=== PATIENT | male | born 1985 | race Two or more races ===

== ENCOUNTER 2020-09-03 14:34 | Outpatient (CLI) | payer OTHER | END 2020-09-03 15:39 | disposition home or self-care (01) | LOC: OFIC 805 14:34 | PROVIDERS: ATTEND Otolaryngology Otology & Neurotology | DX: H90.42 Sensorineural hearing loss, unilateral, left ear, with unrestricted hearing on the contralateral side (principal); H61.23 Impacted cerumen, bilateral ==